=== PATIENT | female | born 1955 | race Caucasian/White ===

== ENCOUNTER 2018-04-24 07:30 | Inpatient (IN) ==
[2018-04-28] MEDS ORDERED: Nasal Sanitizer POPSWAB ampule 3 AMP (Nozin) PREOP DOSE ENOS SCH (06:00)
[2018-04-28] MEDS ORDERED: LIDOCAINE W/ SODIUM BICARB 0.5 ML SYR SUBD ONE (06:00)
[2018-04-28] MEDS ORDERED: Lactated Ringers 1,000 ML PRIMARY IV ONE ×4 (06:00→14:46)
[2018-04-28] MEDS ORDERED: ceFAZolin Inj 2gm (Premix) 2 GM/50 ML BAG IV ONE ×2 (06:00→06:16)
[2018-04-28] MEDS ORDERED: Vancomycin Inj 1gm vial ONE ×2 (06:16→08:02)
[2018-04-28] MEDS ORDERED: fentaNYL Inj 100 MCG/2 ML VIAL ONE (06:17)
[2018-04-28] MEDS ORDERED: REMIFENTANIL HCL 2 MG VIAL IV ONE ×3 (06:17→14:06)
[2018-04-28] MEDS ORDERED: Sodium Chloride 0.9% 250 ML ONE (06:17)
[2018-04-28] MEDS ORDERED: KETAMINE 100 MG/1 ML - 5 ML ONE (06:17)
[2018-04-28] MEDS ORDERED: REMIFENTANIL 1 MG/1 ML IV ONE ×2 (06:17→11:21)
[2018-04-28] MEDS ORDERED: MIDAZOLAM 5 MG/1 ML ONE (06:17)
[2018-04-28] MEDS ORDERED: LIDOCAINE W/ SODIUM BICARB 0.5 ML SYR ONE (06:17)
[2018-04-28] MEDS ORDERED: ROCURONIUM 10 MG/1 ML - 5 ML VIAL IVP ONE (06:26)
[2018-04-28] MEDS ORDERED: Propofol 1,000 MG/100 ML VIAL IV ONE ×4 (06:27→13:52)
[2018-04-28] MEDS ORDERED: Sodium Chloride 0.9% vial 20 ML ONE ×2 (08:00→08:01)
[2018-04-28] MEDS ORDERED: BACITRACIN 50,000 UNIT VIAL IRRIG ONE ×3 (08:00→08:04)
[2018-04-28] MEDS ORDERED: BUPIVACAINE 0.25% W/ EPI - 10 ML VIAL ONE (08:00)
[2018-04-28] MEDS ORDERED: Gentamicin Inj 40 MG/ML VIAL ONE (08:02)
[2018-04-28] MEDS ORDERED: Sodium Chloride 0.9% vial 10 ML ONE (08:03)
[2018-04-28] MEDS ORDERED: PHENYLEPHRINE 10,000 MCG/1 ML VIAL ONE (08:47)
[2018-04-28] MEDS ORDERED: DEXAMETHASONE PF 10 MG/1 ML VIAL ONE (09:17)
[2018-04-28] MEDS ORDERED: Hetastarch 6% + NS 500 ML IV ONE (09:34)
[2018-04-28] MEDS ORDERED: Sodium Chloride 0.9% 0 ML ONE (10:45)
[2018-04-28] MEDS ORDERED: BUPivacaine Liposome/PF (Exparel) Inj 20ml vial INFIL ONE (15:26)
[2018-04-28] MEDS ORDERED: BUPivacaine Inj 0.25% PF - 10ml vial ONE (15:26)
--- NOTE | 2018-04-28 16:04 | GEN.OPNOTE ---
Operative Note Surgery Date: 04/28/18 Preoperative Diagnosis: 1. Low back pain. 2. Adjacent level degenerative disc disease at L4-5. 3. Degenerative disc disease at L3-4, mild to moderate in degree. 4. Adjacent level lumbar spondylosis with facet arthropathy and hypertrophy at L4-5 with mild facet arthropathy and hypertrophy at L3-4. 5. Central canal stenosis at L3-4, moderately severe in degree and L4-5, moderately severe too severe in degree. 6. Bilateral lateral recess stenosis at L3-4 and L4-5, severe at the latter level. 7. Moderately severe to severe bilateral L4 neural foraminal stenosis. Postoperative Diagnosis: 1. Low back pain. 2. Adjacent level degenerative disc disease at L4-5. 3. Degenerative disc disease at L3-4, mild to moderate in degree. 4. Adjacent level lumbar spondylosis with facet arthropathy and hypertrophy at L4-5 with mild facet arthropathy and hypertrophy at L3-4. 5. Severe central canal stenosis, L3-4 & L4-5. 6. Severe bilateral lateral recess stenosis, L3-4 & L4-5. 7. Moderately severe to severe bilateral L4 neural foraminal stenosis. Procedure: 1.) Exposure of L5-S1 hardware elements from previous surgery. 2.) Partial laminectomy/medial facetectomies/foraminotomies for decompression of severe central canal, lateral recess, and neuroforaminal stenosis bilaterally, L3-4. (CPT code: 32675). 3.) Partial laminectomy/medial facetectomies/foraminotomies for decompression of severe central canal, lateral recess, and neuroforaminal stenosis bilaterally, L4-5. (CPT code: 67914). 4.) Athrodesis, combined posterolateral with posterior interbody technique, L3-4. (CPT code: 74065). 5.) Insertion of 10 mm x 11 mm x [address] titanium lumbar interbody cage filled in the center with autograft into the L4-5 level for interbody fusion. (CPT code: 02161). 6.) Redo arthrodesis, L5-S1 bilater ally for posterolateral fusion. (CPT code: 57981). 7.) Non-segmental posterolateral instrumentation, L4-5. (CPT code: 23694). 8.) Use of autograft harvested from the same incision, cleaned and morselized for interbody and posterolateral fusion. (CPT code: 01155). 9.) Use of 10 cc of Styrker Vitoss synthetic bone growth product (allograft), 5 cc of [employer] i-FACTOR peptide enhanced bone product (allograft), 20 cc of Styrker BIO DBM Putty Plus with cancelleous (allograft) for interbody and posterolateral fusion. (CPT code: 80001). 10.) Use of ACL[employer]A Bank computer assisted neuronavigation system with Ziehm 3D fluoroscopy for cannulization of the L4 pedicles bilaterally for the subsequent placement of the L4 pedicle screws bilaterally. (CPT code: 84476). 11.) Use of intra-operative fluoroscopy for localization of correct surgical levels, for confirmation of final position of intervertebral cage and for confirmation of final position of posterolateral hardware elements. 12.) Use of intra-operative neuromonitoring including free running EMG's, triggered EMG's, and SSEP's. Surgeon: Aquiles Wilson MD Front Desk Attendant: DAO Navarrete Anesthesia Provider: Flor Mg CRNA Anesthesia Type: General Estimated Blood Loss (mL): 400 Fluids: See anesthesia record Pathology: None Indications: Ms. Ellen Bingham is a 62 year old female with a previous L5-S1 lumbar fusion and adjacent level degenerative changes at the L4-5 level and similar but to a lesser degree degenerative changes at the L3-4 level. Ms. Bingham did not get any improvement with expectant management or other non-operative therapies. We discussed surgical treatment which in my opinion would require decompressing the severe stenosis at the adjacent L4-5 level and extending her fusion to this level because of the severe facet arthropathy at this level, and decompressing the L3-4 level. She wished to proceed with surgical treatment. Findings: 1.) Severe lumbar stenosis/bilateral lateral recess stenosis, L2-3. 2.) Severe lumbar stenosis/bilateral lateral recess stenosis, L3-4. 3.) Severe facet arthropathy L3-4 bilaterally. Complications: None Operative Summary: Ms. Bingham was met in the pre-operative area. Her surgical history and physical was updated. The procedure to be performed was confirmed with Ms. Ryan cantu and we were in agreement on the procedure to be performed and this matched the surgical consent form. I answered any questions that Ms. Bingham or family members had before she was taken back to the operative room suite. Ms. Bingham was brought back to the operating room suite. She was intubated and put under general anesthesia by the anesthesia staff. She had a Cantu catheter placed in her bladder for the procedure. She had pneumatic compression hose placed on her lower legs bilaterally. Ms. Bingham was carefully rolled over onto the Heath surgical table. Her arms were gently positioned upwards with her shoulders abducted less than 90. Her arms were well-padded with foam padding on top of the padding the surgical armboards. The region of her chest and axilla was checked bilaterally to make sure that there were no pressure points over the region of the brachial plexus bilaterally. Her breasts were checked be below the chest pad of the Heath table with no pressure points over the nipples. All bony prominences were well padded. Her Cantu catheter was checked be free from kinks. Her pneumatic compression hose were attached and pneumatic compression device. Ms. Bingham's incision from her previous surgery was demarcated and extended slightly rostrally with a skin marker. Crosshatches were made with a skin marker as well. Miss Bingham was prepped and draped in the usual and standard fashion. She was given 2 g of Ancef and 1 g of vancomycin IV for perioperative antibiosis. She was given 10 mg of Decadron IV. A surgical timeout was performed identifying the correct patient, the correct procedure, and the correct equipment being available for the procedure. The intended skin incision was injected subcutaneously with quarter percent Marcaine with 1 in 200,000 epinephrine. 20 mL of local anesthetic was used. The skin was incised with a 10 blade scalpel and all dermal and superficial subcutaneous bleeding points were controlled bipolar cautery. Dissection was performed through the subcutaneous tissue and scar tissue down to the lumbar fascia. In the rostral aspect of the surgical dissection in the normal tissue planes the dissection was continued down the most caudal spinous process and out over the lamina. The dissection more caudally was taken out laterally earlier as the dissection proceeded ventrally to avoid entering into any previous areas of spinal canal decompression. This identified the patient's hardware on the right which was partially encased in bone. The hardware on the left was completely encased in bone. Rostrally the dissection was performed in a subperiosteal fashion exposing the L3 lamina and the L4 lamina and the medial aspect of the L3-4 facet joints and dissection was taken out laterally over the L4-5 facet joints and out laterally over the L4 transverse process bilaterally. Soft tissue was cleaned over the posterior aspect of the spine in the rostral aspect of the surgical dissection in the normal tissue planes using Bovie cautery and a large Leksell rongeur. The hardware from the patient's previous L5-S1 fusion was completely dissected out with Bovie cautery, a large Leksell rongeur, and the high-speed Sutton neuro core large drill with a matchstick bit. Because the patient's system from her previous surgery was the Sonal radius system which would not be compatible with the Sutton Roshan 3 system 6.0 mm kofi, and because the patient's L5 and S1 pedicle screws were cemented into the vertebral bodies, and because the hardware deviated laterally at the L5 pedicle screws bilaterally which would make it very hard to get rods into the new L4 pedicle screws and the old L5 and S1 pedicle screws because the screw tulips would not be in alignment, it was decided to connect to the patient's previous hardware using W kofi connectors to attached to the L5-S1 construct 5.5 rods to the new L4 Sutton Roshan 3 pedicle screws using offsets and 6 mm titanium rods. Therefore of the bone underneath the rods I laterally was drilled such that the W connectors could be attached to the 5.5 rods of the L5-S1 construct. The scar tissue over the canal was very carefully pared down with a large Leksell rongeur exposing the majority of the L5 lamina to remain intact and exposing the upper part of the sacrum bilaterally. During this paring of the scar tissue there was some loose bone encountered embedded in the scar tissue not attached to other bone. Although the L5-S1 level appeared to be fused across the facet joints bilaterally which were completely dissected out from the scar tissue over the the facets, there was some loose bone encountered around and medial to the L5 pedicle screw on the left. Part of the L4-5 facet joint on the right was loose. The areas of loose bone were removed. Extensive decortication was then performed of the L4 transverse processes bilaterally and the lateral aspect of the L4-5 facet joints bilaterally and the posterior aspect of feet of the fused L5-S1 facet joints were decorticated bilaterally and the sacrum was decorticated bilaterally. All decortication was performed with the Midas Brent high-speed drill with a matchstick bit. The bone dust created was collected and saved to be used as autograft during the fusion portion of the procedure. The [employer] neuro navigation arc was securely attached to the L3 spinous process and a spin was performed with this Ziehm 3-D fluoroscopy unit. The [employer] neuro navigation pedicle finder was then used to cannulate the L4 pedicles bilaterally. The bone was noted to be somewhat soft but felt to be strong enough to hold pedicle screws. The internal aspect the L4 pedicles were palpated with a small ball-tip instrument. The L4 pedicles were then tapped with appropriate size Sonal Roshan 3 tap. The internal aspect of the pedicles palpated again with a small ball-tip instrument. The pedicle screws were then placed. 6.5 x 60 mm pedicle screws were placed into the L4 pedicles bilaterally. The pedicle screws obtained good purchase in the pedicle and vertebral body bone. The pedicle screws were interrogated with triggered EMGs. The L4 pedicle on the right and demonstrated 29 mA of impedance and the L4 pedicle screw on the left and strata greater than 40 mA in impedance. This indicated that the pedicle screws were not in close in proximity to nerve structures. Another spin was performed with the Ziehm 3-D fluoroscopy unit providing further confirmation of the pedicles were contained within the pedicles bilaterally and that they were bicortical in purchase as intended. A partial L4 laminectomy with medial facetectomies and foraminotomies was then performed with a high-speed Midas Brent drill with a matchstick bit as well as with various size Kerrison punches. Surgical findings included severe central canal and bilateral lateral recess stenosis encountered secondary to bony arthropathy and hypertrophy and there he thickened yellow ligament. The leading edge of the L5 lamina was removed with the canal being completely at this level however the lateral recess stenosis continued to medial to the L5 pedicles bilaterally. This lateral recess stenosis was completely decompressed with a high-speed drill with a matchstick bit as well as with various Kerrison punches. A Chester 4 instrument was used to carefully dissect the soft tissue adjacent t o the takeoff of the transversing L5 nerve root identifying the L4-5 disc space. The medial facetectomy at L4-5 on the left was extended laterally using the high-speed drill with a matchstick bit provide the proper exposure needed for the intervertebral cage placement at this level. The transversing L5 nerve root and the thecal sac were gently retracted with a Crys'Griselda nerve root retractor. Epidural veins over the disc space were coagulated with bipolar cautery turned down to a low setting and cut with microscissors. An annulotomy was performed with a 15 blade scalpel with disc material being removed with pituitary rongeur. Additional disc and cartilaginous endplate was loosened in the intervertebral space using the K2 disc space jesse a 7 mm disc space shaver followed by an 8 mm disc space shaver. The loosened disc material was removed with a pituitary rongeur. A large down-biting Dayana curette was used to loosen disc laterally in the disc space bilaterally these fragments of disc being removed with a pituitary rongeur. The large down-biting Dayana curette was then used to decorticate the inferior endplate of the L4 vertebral body and the superior endplate of the L5 vertebral body in preparation for fusion of the L4-5 interspace. The interspace was irrigated with bacitracin irrigation through directional energy conservation technician. A mixture of [employer]s i-FACTORr peptide enhanced bone product (allograft) and [employer] Bank BIO DBM plus putty with cancellus (allograft) was inserted into the L4-5 interspace. Proximally 3 to 3.5 cc of the mixture was placed into the interspace and moved anteriorly with a bone tamp. The interspace was sized for the appropriate size lumbar interbody cage. A 10 mm x 11 mm x [address] titanium lumbar interbody cage was selected and filled in the center with autograft and inserted into the L4-5 interspace with the pulley mortiser operator. The cage was gently countersunk and rotated with a bone tamp and mallet. The cage obtained good purchase between the L4 and L5 endplates. The final position of the cage was confirmed with lateral fluoroscopy. A partial L3 laminectomy with medial facetectomies and foraminotomies was then performed. Surgical findings at this level included severe central canal and bilateral lateral recess stenosis, greater in degree than expected based on preoperative imaging. This stenosis was secondary to bony arthropathy and hypertrophy ligamentous hypertrophy. The decompression was performed with a high-speed Medtronic Midas Brent electric drill with a matchstick bit and various Kerrison punches. Excellent decompression of the spinal canal lateral recesses neuroforamen and the exiting and transversing nerve roots was assured both by visual inspection as well as by palpation around the bony structures and nerve structures with the Desha instrument. Attention was turned back to the instrumentation portion of the procedure. The W kofi to kofi connectors were then attached to the 5.5 mm Sonal radius rods between the L5 and S1 pedicle screws from the patient's previous instrument infusion. Short offsets were then placed into the tulips of the L4 pedicle screws bilaterally after cutting down the excess ends of the offsets and drilling the cut and smoothed. Two 6 mm x 60 mm pre-bent lordotic Sonal Roshan 3 titanium rods were then placed into the tulips of the offsets and into the medial part of the Sonal W connectors bilaterally. All set screws of the W connectors, the set screws of the L4 pedicle tulips, and the set screws in the short offsets were then all tightened down hand tight. There were then tightened down to their final tightness using the torque counter torque device. The surgical site was then irrigated with bacitracin irrigation. The surgical site was then irrigated with hydrogen peroxide solution which was allowed to sit briefly and then removed by suction. The surgical site was then pulse lavaged with 3 L of vancomycin/bacitracin/gentamicin solution. The 10 mL of Sonal Vitoss synthetic bone product (allograft) was split with half of this product being placed lateral to the hardware construct from the L4 transverse process L5-S1 posterior lateral fusion mass bilaterally. The remaining autograft was split with this product being placed over the the top synthetic bone product from the L4 transverse processes to the L5-S1 posterior lateral fusion mass bilaterally. 10 mL of Sonal BIO DBM plus putty with cancellus lateral to the hardware construct bilaterally from the L4 transverse processes to the the L5-S1 posterolateral fusion mass over the autograft chips to provide extra bone product for fusion but also to hold the bone chips in place. The spinal decompression sites were then both inspected for any bone fragments. Any identified were removed. These areas were then again with a small amount of bacitracin irrigation which was subsequently removed with suction. Floseal hemostatic agent was placed over all exposed dural elements. The decompressed sites were then covered with Gelfoam. Two medium Hemovac drains were placed in the surgical site. The closure portion of the procedure was begun. The fascia was closed tightly with #1 Vicryl suture in an interrupted fashion. The surgical site was again irrigated with bacitracin irrigation. The deep subcutaneous tissue and fascia was reapproximated with 2-0 Vicryl suture in an interrupted fashion. The dermis and superficial subcutaneous tissue was reapproximated with 3-0 Vicryl suture in an inverted interrupted fashion. Back the skin edges and the final layer of closure was performed surgical stainless steel saba. The incision was cleansed with bacitracin soaked sponge and dried with sterile dry sponge. The incision was dressed with a Mepilex dressing. The surgical dr ains were secured with suture. The drain sites were dressed. All surgical drapes were removed from the [facility]. She was carefully rolled over onto the PACU stretcher. She was awoken and extubated by the anesthesia staff. She was taken to the recovery room in stable condition. All surgical counts were reported as correct by the scrub and circulating personnel. A physician's pharmacy sales assistant, Mrs. Salome De La Cruz PA-C assisted with the procedure including the exposure and closure portions of the procedure. She provided irrigation and suctioning throughout the procedure. She skillfully and care fully retracted the nerve structures during the more critical portions of the procedure such as the discectomy and intervertebral cage placed placement portions of the procedure.
[2018-04-28] MEDS ORDERED: ONDANSETRON 4 MG/2 ML VIAL IVP PRN ×2 (16:11→17:26)
[2018-04-28] MEDS ORDERED: Prochlorperazine Edisylate Inj 10mg/2ml vial IVP PRN ×2 (16:11→17:26)
[2018-04-28] MEDS ORDERED: Ondansetron ODT Tab 8 MG TAB PO PRN (16:11)
[2018-04-28] MEDS ORDERED: LIDOCAINE W/ SODIUM BICARB 0.5 ML SYR SUBD PRN (16:11)
[2018-04-28] MEDS ORDERED: fentaNYL Inj 100 MCG/2 ML VIAL IVP PRN (16:11)
[2018-04-28] MEDS ORDERED: HYDROmorphone 2 MG/1 ML ONE (16:15)
[2018-04-28] MEDS: HYDROmorphone 2 MG/1 ML IVP PRN ×3 (16:15→16:30)
[2018-04-28] MEDS ORDERED: Lactated Ringers 1,000 ML PRIMARY IV SCH (16:15)
--- NOTE | 2018-04-28 16:24 | CRNA.PROGR ---
Anesthesia Time - Procedure/Recovery Time Start Date: 04/28/18 End Date: 04/28/18 Anesthesia : Time In: 08:17 Anesthesia : Time Out: 16:03 Anesthesia : Total Time: 466 - Total Anesthesia Time Total Anesthesia Time (minutes): 466 - Other Weight: 69.853 kg Height: 5 ft 5 in Body Mass Index (BMI): 25.6 Physical Status: P2 (stage 3 renal disease) Anesthesia Type: General Anesthesia : ET
--- NOTE | 2018-04-28 16:25 | CRNA.PROGR ---
Anesthesia Recovery Phase I - Post Anesthesia Evaluation Patient's Condition on Arrival in Phase I: Stable Patient's Condition on Arrival in Phase II: Stable Pain Level: 4 (started at a high pain level, rapidly came down.)
--- NOTE | 2018-04-28 16:25 | CRNA.PROGR ---
Post Anesthesia Phase II - Post Anesthesia Phase II Patient Stable and Discharged To: Med/Surg Care Assumed By Surgeon: Aquiles Wilson MD Temperature: 97.2 F Pulse Rate: 66 Respiratory Rate: 17 Blood Pressure: 131/83 Pulse Ox: 96 Total Michael Score at Discharge: 9 Post Anesthesia Discharge Criteria Met: Yes
[2018-04-28] MEDS ORDERED: MAGNESIUM 400 MG/5 ML - 30 ML (MILK OF MAGNESIA) PO PRN (17:26)
[2018-04-28] MEDS ORDERED: oxyCODONE/APAP 10/325 Tab 1 EACH TAB PO PRN (17:26)
[2018-04-28] MEDS ORDERED: oxyCODONE-ACETAMINOPHEN 5-325 TAB PO PRN (17:26)
[2018-04-28] MEDS ORDERED: DOCUSATE 100 MG CAPSULE PO PRN (17:26)
[2018-04-28] MEDS ORDERED: Fleet Enema 133ml RECTAL PRN (17:26)
[2018-04-28] MEDS ORDERED: ALENDRONATE 70 MG TABLET PO SCH (17:26)
[2018-04-28] MEDS ORDERED: Ondansetron ODT Tab 4 MG TAB PO PRN (17:26)
[2018-04-28] MEDS ORDERED: MAGNESIUM CITRATE 296 ML SOLUTION PO PRN (17:26)
[2018-04-28] MEDS ORDERED: BISACODYL 5 MG TABLET PO PRN (17:26)
[2018-04-28] MEDS ORDERED: DIAZEPAM 5 MG TABLET PO PRN (17:26)
[2018-04-28] MEDS ORDERED: Vancomycin-PHA to Dose IV SCH (17:26)
[2018-04-28] MEDS ORDERED: PROMETHAZINE 25 MG/1 ML VIAL IM PRN (17:26)
[2018-04-28] MEDS ORDERED: MORPHINE SULFATE 2 MG/1 ML IVP PRN (17:26)
--- NOTE | 2018-04-28 17:47 | NEURO.PROG ---
Subjective Post Op Day: 0 Pain Management: PO Cantu Catheter: Yes Ambulating: No Additional Details: Awake, alert, and oriented on surgical floor. Surgical pain currently controlled. Denies pain, parasthesias, or weakness in any extremities. Moving all extremities well. PLAN: 1.) Continue post-operative antibiotics. 2.) Continue post-operative pain control. 3.) Advance diet. 4.) Start to mobilize in am. Objective : Data - Vital Signs Vital Signs and I&O: Vital Signs - Last Taken Temperature 97.2 F 04/28/18 17:30 Pulse Rate 77 04/28/18 17:30 Respiratory Rate 17 04/28/18 17:30 Blood Pressure 142/84 04/28/18 17:30 Pulse Ox 93 04/28/18 17:30 Intake and Output (24hr x 4 totals) 04/26/18 04/27/18 04/28/18 04/29/18 05:59 05:59 05:59 05:59 Intake Total 2720 / 2720 Output Total 1350 / 1350 Balance 1370 / 1370
--- NOTE | 2018-04-28 18:24 | PDOC ---
HPI - History of Present Illness Date of Service: 04/28/18 Time of Service: 18:19 Chief Complaint: Back pain status post back surgery History of Present Illness: This very pleasant 2-year-old female without a thickened past medical history other than chronic kidney disease, stage III, who comes in having back surgery with Dr. Wilson today. See his surgical notes regarding this. She developed back pain, and had managed just medically, but opted for surgical intervention is medical therapy really did not help. She states postoperatively that she does not have any chest pain, shortness breath, nausea or vomiting. She denies any headaches. She is undertaking and ice chips. She is very motivated and would like to try to get home even by Saturday if she is doing well. She states her back pain is well controlled postoperatively. She is already stating that her leg pains have improved. She lost about 400 mL of blood during surgery. Her blood pressures look well controlled with systolics in the 130s to 140s range postoperatively. Past Medical History Medical History: 1. Chronic kidney disease, stage III. 2. History of tobacco abuse, quit smoking this year. Had [id number] history Surgical History: 1. Prior back surgery with discectomy and fusion. 2. Appendectomy Pertinent Family History: Significant for stroke in her father, cancer in her mother's family side of the family. Past Social History: Quit smoking after 30 years of smoking this year. No alcohol. . Has 2 children described as healthy. Currently works part- time. 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 Lives in [place], [place]. Tobacco Use: Former Smoker In the Past 12 Months, Have Used or Abuse Any of the Following Substance: None Alcohol Use: None Medication / Allergies Home Medications: Home Medications Medication Instructions Recorded Confirmed Type acetaminophen 325 mg capsule 325 mg PO Q4-6H PRN 02/10/18 04/28/18 History alendronate 70 mg tablet 70 mg PO QWEEK 02/10/18 04/28/18 History bupropion HCl SR 150 mg tablet,12 150 mg PO BID 02/10/18 04/28/18 History hr sustained-release Loratadine [Claritin] 10 mg PO DAILY 04/28/18 04/28/18 History Allergies/Adverse Reactions: Allergies Allergy/AdvReac Type Severity Reaction Status Date / Time tramadol Allergy Mild hives, Verified 04/28/18 17:28 swelling Review of Systems - Constitutional Constitutional: REPORTS: Negative System Review - Respiratory Respiratory: REPORTS: Negative System Review - Cardiovascular Cardiovascular: REPORTS: Negative System Review - Gastrointestinal Gastrointestinal / Abdominal: REPORTS: Negative System Review - Genitourinary Genitourinary: REPORTS: Negative System Review Exam - Vitals Vital Signs: Vital Signs Temperature 97.3 F Temperature Source Temporal Artery Scan Pulse Rate [Pulse Oximeter] 71 Pulse Rate 70 Respiratory Rate 17 Blood Pressure [Left Arm] 136/77 Blood Pressure 142/83 Pulse Ox 93 Oxygen Flow Rate 1 Oxygen Delivery Method Nasal Cannula Height 5 ft 5 in Weight 154 lb - General General Appearance: No Acute Distress, Cooperative - Head Head Exam: Normal Inspection, Normocephalic, Atraumatic - Eye Eye Exam: POSITIVE: No Scleral Icterus - ENT ENT Exam: POSITIVE: Mucous Membranes Moist - Neck Neck Exam: Normal Inspection, No Tenderness, No Lymphadenopathy, No Thyromegaly, JVP is not Raised - Respiratory Respiratory Exam: POSITIVE: Clear to Auscultation - Bilaterally, Breathing Non Labored - Cardiovascular Cardiovascular Exam: POSITIVE: RRR, No Murmur, No Clicks, No Gallops, No Rubs, No JVD - GI/Abdominal GI/Abdominal Exam: POSITIVE: Normal Bowel Sounds, Non Tender, Non Distended, Soft - Rectal Rectal Exam: POSITIVE: Deferred - External Exam: POSITIVE: Deferred Exam: POSITIVE: Deferred - Extremities Extremities Exam: POSITIVE: No Clubbing Present, No Edema Present, No Cyanosis Present - Neurological Neurological Exam: POSITIVE: Alert, Oriented x 3, No Facial Droop, Speech Intact / Clear - Psychiatric Psychiatric Exam: POSITIVE: Normal Affect, Normal Mood Results - Labs Additional Lab Results: A BMP and CBC are scheduled for tomorrow. Assessment and Plan - Patient Problems (1) Chronic kidney disease Current Visit: Yes Status: Chronic Code(s): N18.9 - Chronic kidney disease, unspecified Qualifiers: Chronic kidney disease stage: stage 3 (moderate) Qualified Code(s): N18.3 - Chronic kidney disease, stage 3 (moderate) (2) Chronic back pain Current Visit: Yes Status: Chronic Code(s): M54.9 - Dorsalgia, unspecified; G89.29 - Other chronic pain Qualifiers: Back pain location: low back pain Back pain laterality: midline Sciatica presence: without sciatica Qualified Code(s): M54.5 - Low back pain; G89.29 - Other chronic pain (3) Status post lumbar surgery Current Visit: Yes Status: Acute Code(s): Z98.890 - Other specified postprocedural states - Assessment / Plan Additional Assessment/Plan Details: From my side, avoid anti-inflammatories. During her stay in the hospital, the hospitalist service will monitor blood pressures as well. Pain medications. Early mobilization PT and OT as necessary. I congratulated her on her smoking cessation recently. I think this will help in her wound healing, surgical recovery, and lung health overall. Continue home medications for osteoporosis and Wellbutrin as well.
[2018-04-28] MEDS: ceFAZolin Inj 1 GM in Sodium Chloride 0.9% 100 ML IV SCH (18:47)
[2018-04-28] MEDS: BuPROPion SR Tab 150 MG TAB PO SCH (20:47)
[2018-04-28] MEDS: oxyCODONE/APAP 7.5/325 Tab 1 TAB TAB PO PRN (23:05)
[2018-04-29] MEDS: ceFAZolin Inj 1 GM in Sodium Chloride 0.9% 100 ML IV SCH (01:00)
[2018-04-29] MEDS: oxyCODONE/APAP 7.5/325 Tab 1 TAB TAB PO PRN ×5 (03:10→22:28)
[2018-04-29 05:01] LABS: BASOPHILS # (AUTO) 0 10*3/UL; BASOPHILS % (AUTO) 0 % (0-1); EOSINOPHILS # (AUTO) 0.01 10*3/UL; EOSINOPHILS % (AUTO) 0.2 % (0-8); Hematocrit [HCT] 29.3 % (37.0-47.0); LYMPHOCYTES # (AUTO) 0.91 10*3/uL; MEAN CORPUSCULAR HEMOGLOBIN 27.9 PG (27-31); MEAN CORPUSCULAR HGB CONC 30.7 g/dL (33-37); MEAN CORPUSCULAR VOLUME 90.7 FL (81-99); MEAN PLATELET VOLUME 8.4 FL (7.4-12.2); MONOCYTES # (AUTO) 0.41 10*3/UL (0.3-0.8); MONOCYTES % (AUTO) 6.3 % (5-15); NEUTROPHILS # (AUTO) 5.19 10*3/UL; NEUTROPHILS % (AUTO) 79.4 % (50-80); RED BLOOD COUNT 3.23 10^6/uL (4.20-5.40)
[2018-04-29 05:23] LABS: BLOOD UREA NITROGEN 20 mg/dL (7-22); BUN/CREATININE RATIO 22.22 (6-20)
[2018-04-29 05:42] LABS: PLATELET MORPHOLOGY COMMENT NORMAL MORPHOLOGY (NORM); RBC MORPHOLOGY COMMENT NORMAL MORPHOLOGY (NORM); WBC MORPHOLOGY COMMENT NORMAL MORPHOLOGY (NORM)
--- NOTE | 2018-04-29 06:55 | NEURO.PROG ---
Subjective Post Op Day: 1 Pain Management: PO Cantu Catheter: No Flatus: Yes Diet: Regular Ambulating: Yes Additional Details: Ms Bingham has made great progress. She has been up in the room independently and feels ready to discharge to home. She has good dorsi and plantar flexion strength bilaterally. She says that her preoperative right leg pain has completely resolved and that her back pain has been managed well with po pain meds. Her drains total 70 ml in 12 hours so will discontinue those this morning. Her incision is dry and intact. She was given post operative instructions by Dr Wilson this morning regarding wound care and activity. She will be seen in the [place] office in follow up next week. Objective : Data - Labs CBC and BMP: 04/29/18 04:13 04/29/18 04:13 - Vital Signs Vital Signs and I&O: Vital Signs - Last Taken Temperature 97.2 F 04/29/18 00:27 Pulse Rate 83 04/29/18 03:42 Respiratory Rate 20 04/29/18 03:42 Blood Pressure 106/57 04/29/18 03:42 Pulse Ox 93 04/29/18 03:42 Intake and Output (24hr x 4 totals) 04/27/18 04/28/18 04/29/18 04/30/18 05:59 05:59 05:59 05:59 Intake Total 2720 / 2720 Output Total 2160 / 2160 Balance 560 / 560
[2018-04-29] MEDS: PANTOPRAZOLE 40 MG TABLET PO SCH (07:31)
[2018-04-29] MEDS ORDERED: LORATADINE 10 MG TABLET PO SCH (09:00)
[2018-04-29] MEDS: BuPROPion SR Tab 150 MG TAB PO SCH ×2 (09:29→21:04)
--- NOTE | 2018-04-29 12:31 | DCSUMMARY ---
Hospitalization Summary Admit Date: 04/28/2018 Discharge Date: 04/29/18 Primary Diagnosis:: status post back surgery Hospital Course: This very pleasant 8-year-old female that presented for back surgery with Dr. Wilson. See his surgical notes regarding the procedure. The patient had a little nausea this morning, but otherwise states that her pain is controlled and she is feeling very well. She will likely go home this afternoon. From a hospitalist standpoint, no major medical issues during the hospital stay. Her postoperative instructions and discharge instructions above been done by neurosurgery. No completes of chest pain, shortness breath, and I saw the patient walk in the halls. She was walking very well. She states that she would like to go home and she has no nausea or vomiting this afternoon. Assessment and Plan: 1. As per discharge assessments noted 2. Disposition: Patient is discharged home. 3. Condition on discharge, stable and improved. 4. Diet: regular diet 5. Activities: resume activities as per neurosurgery instructions 6. Follow-Up: 1. Patient should see Dr. Wilson at her scheduled postoperative follow- up 2. 7. Medications at the Time of Discharge: Home Medications Medication Instructions Recorded Confirmed Type acetaminophen 325 mg capsule 325 mg PO Q4-6H PRN 02/10/18 04/28/18 History alendronate 70 mg tablet 70 mg PO QWEEK 02/10/18 04/28/18 History bupropion HCl SR 150 mg tablet,12 150 mg PO BID 02/10/18 04/28/18 History hr sustained-release Loratadine [Claritin] 10 mg PO DAILY 04/28/18 04/28/18 History Cyclobenzaprine HCl [Flexeril] 10 mg PO TID #30 tab 04/29/18 Rx oxyCODONE/APAP 7.5/325 Tab 1 - 2 tab PO Q4-6H PRN #40 tab 04/29/18 Rx [Percocet 7.5/325 Tab] Exam - Vitals Vital Signs: Vital Signs Temperature 97.6 F Temperature Source Temporal Artery Scan Pulse Rate [Pulse Oximeter] 84 Pulse Rate 70 Respiratory Rate 17 Blood Pressure [Right Arm] 130/71 Blood Pressure [Left Arm] 106/57 Blood Pressure 142/83 Pulse Ox 93 Oxygen Flow Rate 1 Oxygen Delivery Method Room Air Height 5 ft 5 in Weight 161 lb 12.8 oz - General General Appearance: No Acute Distress, Cooperative - Head Head Exam: Normal Inspection, Normocephalic, Atraumatic - Eye Eye Exam: POSITIVE: No Scleral Icterus - Respiratory Respiratory Exam: POSITIVE: Clear to Auscultation - Bilaterally, Breathing Non Labored - Cardiovascular Cardiovascular Exam: POSITIVE: RRR, No Murmur, No Clicks, No Gallops, No Rubs, No JVD - GI/Abdominal GI/Abdominal Exam: POSITIVE: Normal Bowel Sounds, Non Tender, Non Distended, Soft - Extremities Extremities Exam: POSITIVE: No Clubbing Present, No Edema Present, No Cyanosis Present - Back Additional Back Exam Details: Drains are in place. As per neurosurgery. - Neurological Neurological Exam: POSITIVE: Alert, Oriented x 3, Normal Gait, No Facial Droop, Speech Intact / Clear, Moves All Extremities Equally Data Peritnent Studies: Laboratory Results 04/29/18 04/29/18 04:13 04:13 WBC 6.53 RBC 3.23 L Hgb 9.0 L Hct 29.3 L MCV 90.7 MCH 27.9 MCHC 30.7 L RDW Std Deviation 42.8 RDW Coeff of Rima 13.4 Plt Count 162 MPV 8.4 Immature Gran % (Auto) 0.2 Neut % (Auto) 79.4 Lymph % (Auto) 13.9 Pettis % (Auto) 6.3 Eos % (Auto) 0.2 Baso % (Auto) 0 Immature Gran # (Auto) 0.01 Neut # (Auto) 5.19 Lymph # (Auto) 0.91 Pettis # (Auto) 0.41 Eos # (Auto) 0.01 Baso # (Auto) 0 WBC Morphology Comment Normal morphology Plt Morphology Comment Normal morphology RBC Morph Comment Normal morphology Sodium 139 Potassium 4.6 Chloride 107 Carbon Dioxide 27 Anion Gap 5 BUN 20 Creatinine 0.9 Estimated GFR > 60 BUN/Creatinine Ratio 22.22 H Glucose 119 H Calculated Osmolality 291.0 Calcium 8.8 Patient Problems - Patient Problem List (1) Status post lumbar surgery Current Visit: Yes Status: Acute Code(s): Z98.890 - Other specified postprocedural states Category: Surgical (2) Chronic kidney disease Current Visit: Yes Status: Chronic Code(s): N18.9 - Chronic kidney disease, unspecified Qualifiers: Chronic kidney disease stage: stage 3 (moderate) Qualified Code(s): N18.3 - Chronic kidney disease, stage 3 (moderate) Category: Medical (3) Chronic back pain Current Visit: Yes Status: Chronic Code(s): M54.9 - Dorsalgia, unspecified; G89.29 - Other chronic pain Qualifiers: Back pain location: low back pain Back pain laterality: midline Sciatica presence: without sciatica Qualified Code(s): M54.5 - Low back pain; G89.29 - Other chronic pain Category: Medical
--- NOTE | 2018-04-29 15:58 | PT.PROG ---
Progress Note Progress Note: S. Patient stated that she is feeling good, she reports that she feels that she is ready to go home. O. Patient ambulated 300 feet around the nurses station. Patient was left at the edge of bed with call light. A. patient tolerated ambulation well, she was able to ambulate with ease. P. She has met all goals at this time.
[2018-04-30] MEDS: oxyCODONE/APAP 7.5/325 Tab 1 TAB TAB PO PRN ×2 (02:00→06:10)
[2018-04-30] MEDS: PANTOPRAZOLE 40 MG TABLET PO SCH (06:51)
--- NOTE | 2018-04-30 11:18 | PTI REPORT ---
Thank you for the referral of Ellen Bingham. She was seen on 04/29/18 for an inpatient evaluation following an L4-L5 fusion. SUBJECTIVE: The patient is a 62-year-old female. The patient reports she is feeling relatively well and is looking forward to getting out of the hospital as soon as she can. The patient states she lives in [place] in a ranch style house and she does not believe stairs will be a difficulty. PAST MEDICAL HISTORY: Past medical history can be found in the patient's medical record. OBJECTIVE FINDINGS: General observations: The patient was issued the Contour LSO back brace and after verbal instruction, the patient was able to don and doff the brace with verbal cues only. Following this she was able to don and doff the brace independently. We went over the patient's restrictions for bending/lifting/twisting. Pain: The patient reports a pain level currently of 4/10 on the verbal analog scale (0=no pain, 10=worst pain). Bed mobility: The patient was able to perform bed mobility and all transfers with stand by assistance. Ambulation: The patient was able to walk greater than 100 feet x1 without a rest break without difficulty without the use of an assistive device. Strength/Range of motion: Strength and range of motion were not formally tested due to surgical precautions. ASSESSMENT: Problem List: Patient is status post L4-L5 fusion Pain Physical Therapy Goals: To be met by discharge from inpatient: Patient will be able to follow all restrictions following surgery. Patient will be able to don and doff her back brace independently. Patient will be able to perform all transfers and bed mobility independently. Patient will be able to ambulate up to 100 feet and ascend and descend stairs on an as needed basis for independence with community and household ambulation. TREATMENT PLAN: Patient will be seen B.I.D during the week and one time per day over the weekend as an inpatient to address the above goals and objectives. INITIAL TREATMENT: Treatment today consisted of the initial evaluation followed by issuing the patient the back brace and instructing her on donning, doffing, and adjustment of the brace. We also went over her restrictions. The patient ambulated x100 feet without difficulty. MTDD
--- NOTE | 2018-04-30 11:29 | OTI REPORT ---
Thank you for the referral of Ellen Bingham. She was seen on 04/29/18 for an occupational therapy inpatient evaluation status post lumbar fusion. SUBJECTIVE: The patient is a 62-year-old female. The patient reports she is feeling relatively well and is looking forward to getting out of the hospital as soon as she can. The patient states she lives in [place] in a ranch style house and she does not believe stairs will be a difficulty. PAST MEDICAL HISTORY: Past medical history can be found in the patient's medical record. OBJECTIVE FINDINGS: Activities of daily living: The patient completed using relationship advisor, sock aide, bath sponge, and long handled shoe horn. She demonstrated use of relationship advisor and sock aide independently after demonstration. She did need min verbal cues in order to use the sock aide correctly. Transfers: The patient requires stand by assistance for functional transfers. Pain: The patient states her pain levels have decreased. Ambulation: The patient has been ambulating around the nurse's station with her with stand by assistance. ASSESSMENT: The patient is doing very well. She is going to stay one more night in the hospital. Salome Walker did come in during the session and we discussed making sure her pain levels stay leveled. She stated that her nausea is slowly getting better. The patient was able to use adaptive devices independently. She required verbal cues for the sock aide. She may need one more session in the morning to go over the equipment and to remember her precautions for lower extremity dressing. Short-Term Goals: To be met by discharge from inpatient: Patient will be independent with all functional transfers. Long-Term Goals: To be met following discharge from inpatient: Patient will demonstrate modified independence with use of adaptive devices for dressing lower extremities to follow her precautions of no bending. TREATMENT PLAN: Patient will be seen one more time in the morning to go over adaptive equipment and precautions. INITIAL TREATMENT: Treatment today consisted of the initial evaluation followed by instruction and demonstration of adaptive equipment. KEY
--- NOTE | 2018-04-30 17:55 | NEURO.PROG ---
Subjective Post Op Day: 2 Pain Management: PO Cantu Catheter: No Flatus: Yes Diet: Regular Ambulating: Yes Additional Details: Patient seen this morning. Stated doing well. Minimal surgical back pain. Pre-operative right leg symptoms remain gone. Post-operative pain well controlled with oral analgesics. Feels ready to be discharged to home. PLAN: Discharge to home. Objective : Data - Labs CBC and BMP: 04/29/18 04:13 04/29/18 04:13 - Vital Signs Vital Signs and I&O: Vital Signs - Last Taken Temperature 98 F 04/30/18 06:31 Pulse Rate 87 04/30/18 06:31 Respiratory Rate 16 04/30/18 06:31 Blood Pressure 124/76 04/30/18 06:31 Pulse Ox 92 04/30/18 06:31 Intake and Output (24hr x 4 totals) 04/28/18 04/29/18 04/30/18 05/01/18 05:59 05:59 05:59 05:59 Intake Total 2720 / 2720 1105 / 1105 Output Total 2160 / 2160 2300 / 2300 40 / 40 Balance 560 / 560 -1195 / -1195 -40 / -40
== END 2018-04-30 08:30 | disposition home or self-care (01) | DRG 460 ==
LOC: OPS 04-28 06:18 → MED/SURG 04-28 17:06
PROVIDERS: ADMIT Neurological Surgery; ATTEND Neurological Surgery